=== PATIENT | male | born 1945 | race Caucasian/White ===

== ENCOUNTER → 2021-11-17 | Outpatient (CLI) | payer MEDICARE ==
[~2021-11-17] MED LIST: AMLODIPINE; DIOVAN; HYDROCODONE; METOPROLOL; Z.0.AMLODIPINE BESY1 PO; Z.0.DIOVAN40 MG; Z.0.METOPROLOL TART2 PO
== END ==
LOC: MRI 10:36
PROVIDERS: ATTEND Psychiatry & Neurology Neurology
DX: R41.3 Other amnesia (principal); M54.2 Cervicalgia
CPT/HCPCS: 70551

== ENCOUNTER 2024-10-21 21:01 | Emergency (ER) | payer MEDICARE ==
[~2024-10-21] VITALS: Ht 170.2 cm; Wt 77.1 kg
[2024-10-21 21:54] LABS: INR 0.97; PARTIAL THROMBOPLASTIN TIME 27.9 seconds (23.8-35.5); PROTHROMBIN TIME 13.5 seconds (11.9-14.5)
[2024-10-21 22:03] LABS: ALBUMIN/GLOBULIN RATIO 1.7 (0.8-2.0); ANION GAP 16.4 mmol/L (8-16); BILIRUBIN,TOTAL 1.3 mg/dL (0.2-1.2); CALCIUM 9.2 mg/dL (8.4-10.2); CREATININE, SERUM 1.38 mg/dL (0.72-1.25); POTASSIUM 4.4 mmol/L (3.5-5.1); TOTAL PROTEIN 6.4 g/dL (6.5-8.1)
[2024-10-21 22:15] LABS: BASOPHILS % 0.7 % (0.0-1.0); EOSINOPHILS # (AUTO) 0.3 (0.0-0.4); EOSINOPHILS % 5.6 % (0.0-6.0); HEMATOCRIT 57.3 % (38.2-49.6); HEMOGLOBIN 18.5 g/dL (14.0-18.0); LYMPHOCYTES % 15.5 % (18.0-39.1); MEAN CORPUSCULAR HEMOGLOBIN 30.2 pg (28-32); MEAN CORPUSCULAR HGB CONC 32.3 g/dL (31-35); MEAN CORPUSCULAR VOLUME 93.5 fL (81-99); MONOCYTES # (AUTO) 0.5 (0.2-0.8); MONOCYTES % 8.7 % (4.4-11.3); NEUTROPHILS # (AUTO) 4.2 (2.1-6.9); NEUTROPHILS % 68.7 % (38.7-80.0); PLATELET COUNT 167 x10e3/uL (140-360); RED BLOOD COUNT 6.13 x10e6/uL (4.3-5.7); RED CELL DISTRIBUTION WIDTH 13.3 % (11.7-14.4); WHITE BLOOD COUNT 6.12 x10e3/uL (4.8-10.8)
[2024-10-21 22:23] LABS: CLARITY,URINE SL CLOUDY (CLEAR); COLOR,URINE RED (YELLOW)
[2024-10-21 22:25] LABS: BILIRUBIN,URINE SMALL (NEGATIVE); LEUKOCYTE ESTERASE ,URINE MODERATE (NEGATIVE); PH,URINE 6 (5 - 7)
[2024-10-21 22:26] LABS: GLUCOSE, URINE NEGATIVE (NEGATIVE); NITRITE,URINE POSITIVE (NEGATIVE); PROTEIN,URINE DIPSTICK TRACE (NEGATIVE); URINE UROBILINOGEN 0.2 mg/dL (0.2 - 1)
[2024-10-21 22:27] LABS: KETONES,URINE NEGATIVE (NEGATIVE)
[2024-10-21] MEDS: SODIUM CHLORIDE 0.9% 1000ML 1,000 ML IV STA (22:54)
[2024-10-21 23:02] LABS: RBC,URINE >50 /HPF (0-5)
[2024-10-21 23:03] LABS: BACTERIA,URINE MODERATE /HPF; EPITHELIAL CELLS,URINE RARE /LPF
[2024-10-21] MEDS ORDERED: IOPAMIDOL 370 MG/ML 100 ML INFUS..BTL INJ ONE (23:05)
[2024-10-21] MEDS ORDERED: SODIUM CHLORIDE 0.9% 250ML 250 ML ONE (23:05)
[2024-10-22] MEDS ORDERED: CEFDINIR300 MG PO (01:58)
[2024-10-22 02:00] VITALS: PULSE 77; RESP 17; TEMP 98.2; O2SAT 98
== END 2024-10-22 02:10 | disposition home or self-care (01) ==
LOC: ER 21:24
DX: N30.01 Acute cystitis with hematuria (principal); N40.0 Benign prostatic hyperplasia without lower urinary tract symptoms; K57.90 Diverticulosis of intestine, part unspecified, without perforation or abscess without bleeding; Z85.72 Personal history of non-Hodgkin lymphomas
CPT/HCPCS: 36415; 74178; 80053; 81001; 85025; 85610; 85730; 87086; 99284; J7030; J7050; Q9967